=== PATIENT | male | born 1990 | race African-American/Black ===

== ENCOUNTER 2024-03-12 02:13 | Emergency (ER) | payer BC, OTHER ==
[2024-03-12 02:24] VITALS: BP 126/77; PULSE 75; RESP 18; TEMP 98.8; BMI 27.0
[2024-03-12 06:26] LABS: SYPHILIS W/ RPR CONF NON-REACTIVE (NONREACTIVE)
[2024-03-12 06:54] LABS: HIV INTERPRETATION NEGATIVE (NEGATIVE)
== END 2024-03-12 04:35 | disposition home or self-care (01) ==
LOC: JER 02:13
DX: R09.A2 Foreign body sensation, throat (principal)
CPT/HCPCS: 36415; 70360-TC-FY; 86780; 87389; 87491; 87591; 87661; 99284-25